=== PATIENT | female | born 1960 ===

== ENCOUNTER 2018-09-16 08:59 | Outpatient (CLI) | payer OTHER | END 2018-09-16 09:07 | disposition home or self-care (01) | LOC: LAB 08:59 | DX: D64.89 Other specified anemias (principal); L02.91 Cutaneous abscess, unspecified; E55.9 Vitamin D deficiency, unspecified; R60.9 Edema, unspecified; H40.89 Other specified glaucoma; E03.8 Other specified hypothyroidism; E66.8 Other obesity; I73.89 Other specified peripheral vascular diseases ==